=== PATIENT | female | born 1965 | race Caucasian/White ===

== ENCOUNTER 2017-04-22 15:51 | Emergency (ER) | payer MEDICAID ==
[~2017-04-22] VITALS: Ht 162.6 cm; Wt 78.0 kg
--- NOTE | 2017-04-22 17:08 | Urgent Treatment Center Report ---
History of Present Issue Date/Time Seen by Provider 04/22/17 4993 Visit Reason Pt arrived:Walked Presenting Problem:PT HAS HAD A COUGH FOR 2 DAYS. PT HAD ORAL SURGERY AND HAS STITCHES IN HER GUMS. PT HAS RASH ON BOTH ARMS. Location if Accident: Onset of symptoms date/time:/ or onset unknown for:MEDICAL HX UNKNOWN Have you (or family members/close friends) recently traveled outside the [place]? N If Yes, where/when: Have you had exposure to infectious disease within the past month? TB? Other? Specify: Patient state that has had a naggy cough for a couple of days State that she had dental surgery last week and had several teeth cut out and still has the stiches in place and wants to have that looked at too to see if we think it may be infected. States that her cough is dry and thinks it may be allergies but wanted to have her looked at to see. State that she also has had a little redness on the tops of both of her arms and he wasn't sure if that was a rash or not but her arms feel a little cold ALLERGIES Coded Allergies: codeine (Intermediate, I-RASH; NAUSEA/VOMITING 12/03/15) CHOCOLATE (FOOD) (From CHOCOLATE (FOOD/DRUG)) (Mild, NA-NAUSEA/VOMITING 12/03/15 ) chocolate flavor (From CHOCOLATE (FOOD/DRUG)) (Mild, NA-NAUSEA/VOMITING 12/03/15 ) Home Medications Reported Medications Levothyroxine Sodium (Levothyroxine) 0.05 MG PO DAILY Ferrous Sulfate (Iron) 325 MG PO DAILY Pravastatin Sodium (Pravachol) 20 MG PO QHS LISINOPRIL (Lisinopril) 5 MG PO DAILY History Medical History General CAD? No Angina: No AK: No Hypertension? No Hyperlipidemia? Yes CHF? No DVT? No PE? No COPD? No Asthma? No Anemia? No GERD? No Gastric ulcers? No GI Bleed? No Hernia? No Thyroid Problems? No Hypothyroidism? No CVA? No Seizures? No Diabetes? No Renal Insuffiency? No UTI? No Stones? No BPH? No GB Disease: No Nephritic Syndrome? No Asplenia? No Hepatitis? No Sickle Cell Disease? No Arthritis? No Migraines? No Cataracts? No Glaucoma? No MRSA? No HIV? No TB? No Anxiety? No Depression? No Cancer? No More? No Immunization HX DT/Tetanus 1-4 YRS Flu NEVER Pneumonia NEVER Surgical Hx Previous Surgery?Y TUBAL LIGATION Hysterect [place] Family History Family HX Diabetes Yes CAD No Hypertension Yes Hyperlipidemia No Cancer Yes TB No Social History Smoking Hx Smoker: Never Smoker Tobacco: No Alcohol Alcohol: No Review of Systems All Other Systems Reviewed and Negative Comment dry cough, sutures on right lower gumline Physical Exam Vital Signs Vital Signs Date Time Temp Pulse Resp B/P Pulse O2 O2 Flow FiO2 Ox Delivery Rate 04/22 1621 97.9 111 18 142/81 98 General Appearance normal appearance, WD/WN, no apparent distress Ear, Nose, Throat clear drainage noted in back of throat like that seen with seasonal allergies Respiratory Status Yes: trachea midline, chest symmetrical, non tender chest. No: respiratory distress. 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 No Departure Departure Time of Disposition 1704 Disposition DC Home or Self Care(routine) Clinical Impression Primary Impression: Seasonal allergies Qualifiers: Chronicity: unspecified Allergic rhinitis trigger: unspecified Qualified Code: J30.2 - Other seasonal allergic rhinitis Condition STABLE Referrals Lucy Skinner MD (Family) Patient Instructions Allergic Rhinitis, Nasal Filters May Improve Seasonal Allergy Symptoms Additional Instructions Take medication for allergies Continue using warm salt water gargles Follow up with family doctor if needed Return if needed Discharge Counseling Counseled pt/family regarding diagnosis, medications/RX, home care, follow up needs Prescriptions Current Visit Scripts Loratadine (Claritin 10MG) 10 MG PO DAILY #30 TAB at 1707
[2017-04-22 17:12] VITALS: BP 142/81
== END 2017-04-22 17:14 | disposition home or self-care (01) ==
LOC: UTC 15:51
DX: J30.2 Other seasonal allergic rhinitis (principal); E78.5 Hyperlipidemia, unspecified; Z79.899 Other long term (current) drug therapy

== ENCOUNTER 2017-04-29 19:21 | Emergency (ER) | payer MEDICAID ==
[~2017-04-29] VITALS: Ht 162.6 cm; Wt 78.0 kg
[~2017-04-29 19:21] MED LIST: BENTYL20 MG PO; CLARITIN 10MG T10 MG PO; IRON TABLETS325 M1 PO; KEFLEX 500MG.500 MG PO; LEVOTHYROXINE0.05 MG PO; LISINOPRIL 5MG T5 MG PO; LORTAB 5/500 501 TAB PO; MEDROL 4MG. DOSE4 MG PO; MOTRIN600 MG PO; OMEPRAZOLE40 MG PO; PHENERGAN 25MG.25 M1 PO; PRAVACHOL20 MG PO; ZANTAC 150150 MG OR
--- NOTE | 2017-04-29 20:08 | Emergency Room Report ---
History of Present Illness Time Seen by 1999 Presenting Problem in Triage Pt arrived:Walked Presenting Problem:PRODUCTIVE COUGH GREEN SPUTUM WITH FEVER X 1 WEEK. SEEN IN [facility] 04/22 AND TREATED FOR ALLERGIES. Onset of symptoms date/time:04/22/17 or onset unknown for: Treatment Prior to Arrival: TYLENOL 04/28 [employer] Provided by:LAYPERSON Sepsis Risk Assessment: Temp: 99.6 B/P: 143/92 MAP: 109 Pulse: 108 Resp: 16 Recent fever? Y Clinical Suspician of Infection? Y Mental Status: 1 - Regular (Normal Baseline) Sepsis Risk:Low Sepsis Risk Have you (or family members/close friends) recently traveled outside the [place]? N If Yes, where/when: Have you had exposure to infectious disease within the past month? N TB? Other? Specify: Source patient, RN notes reviewed, family, old records Exam Limitations language barrier Comment fever with assoc cough over the last few days with no hemoptysis Cardiac Chest Pain Chest pain indicative of cardiac No Timing/Duration this evening Severity moderate ALLERGIES Coded Allergies: codeine (Intermediate, I-RASH; NAUSEA/VOMITING 12/03/15) CHOCOLATE (FOOD) (From CHOCOLATE (FOOD/DRUG)) (Mild, NA-NAUSEA/VOMITING 12/03/15 ) chocolate flavor (From CHOCOLATE (FOOD/DRUG)) (Mild, NA-NAUSEA/VOMITING 12/03/15 ) Home Medications Active Scripts Loratadine (Claritin 10MG) 10 MG PO DAILY #30 TAB Prov: 04/22/17 Reported Medications Levothyroxine Sodium (Levothyroxine) 0.05 MG PO DAILY Ferrous Sulfate (Iron) 325 MG PO DAILY Pravastatin Sodium (Pravachol) 20 MG PO QHS LISINOPRIL (Lisinopril) 5 MG PO DAILY History Medical History General CAD? No Angina: No DE: No Hypertension? No Hyperlipidemia? Yes CHF? No DVT? No PE? No COPD? No Asthma? No Anemia? No GERD? No Gastric ulcers? No GI Bleed? No Hernia? No Thyroid Problems? No Hypothyroidism? No CVA? No Seizures? No Diabetes? No Renal Insuffiency? No End Stage Renal Disease? No UTI? No Stones? No BPH? No GB Disease: No Nephritic Syndrome? No Asplenia? No Hepatitis? No Sickle Cell Disease? No Arthritis? No Migraines? No Cataracts? No Glaucoma? No MRSA? No HIV? No TB? No Anxiety? No Depression? No Cancer? No More? 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 Respiratory see HPI, cough, denies shortness of breath, denies wheezing Cardiovascular denies chest pain, denies syncope Gastrointestinal denies abdominal pain, denies diarrhea, denies vomiting Genitourinary denies: dysuria, frequency, hesitancy, hematuria. Musculoskeletal denies back pain, denies joint pain, denies neck pain Skin denies rash Psychiatric/Neurological denies headache, denies seizure Physical Exam Vital Signs Vital Signs Date Time Temp Pulse Resp B/P Pulse O2 O2 Flow FiO2 Ox Delivery Rate 04/29 1926 99.6 108 16 143/92 97 - WBC >12,000 or <4,000 or 10% bands? 2 or more SIRS Criteria Met? B/P:143/92 MAP:109 Creatinine >2.0? UA output<0.5ml/kg/hr for 2 hrs? Platelet count >100,000? Lactate >2.0mmol/1? INR >1.2 or PTT > than 60 sec? Evidence of Organ Dysfunction? Provider documented clinical suspician of infection? Y Sepsis Criteria Count: 1 Sepsis Risk: Low Sepsis Risk General Appearance no apparent distress Eye Exam - bilateral eye PERRL, bilateral eye EOMI Ear, Nose, Throat normal ENT inspection Neck supple Respiratory Status No: respiratory distress. Lung Sounds bilateral: lungs clear. 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 No Results/Orders Laboratory Tests 04/29/172019: Chlamy pneum (TEM-PCR) Pending, Adenovirus (PCR) Pending, B. pertussis DNA (PCR) Pending, Coronavirus OC43 (PCR) Pending, Coronavirus HKU1 (PCR) Pending, Coronavirus 229E (PCR) Pending, Coronavirus NL63 (PCR) Pending, Human Metapneumovir PCR Pending, Influenza A (H1) PCR Pending, Influ A (H1N1/09) PCR Pending, Influenza A (H3) PCR Pending, Influenza Type A (PCR) Pending, Influenza Type B (PCR) Pending, M. pneumoniae (PCR) Pending, Parainfluenza 1 (PCR) Pending , Parainfluenza 2 (PCR) Pending, Parainfluenza 3 (PCR) Pending, Parainfluenza 4 (PCR) Pending, RSV (PCR) Pending, Entero/Rhino (PCR) Pending 04/29/171954: Sodium 140, Potassium 3.3 L, Chloride 106, Carbon Dioxide 28, BUN 11, Creatinine 0.8, Estimated Creat Clear 99, Estimated GFR (MDRD) 75, Glucose 135 H, Calcium 8.2 L, WBC 5.3, RBC 4.21, Hgb 12.1 L, Hct 37.5, MCV 89.1, RDW 15.1, Plt Count 154, Gran % 34.8 L, Gran # 1.8, Total Counted Pending, Lymphocytes % 54.4 H, Monocytes % 10.8 H, Neutrophils Pending, Lymphocytes (Manual) Pending, Lymphocytes # 2.9, Monocytes # 0.6, Platelet Estimate Pending, PUBS MCHC 32.3, MCH 28.7 Current Medication Orders Sig/Carlos Start time Last Medication Dose Route Stop Time Status Admin Sodium Chloride 1,000 ML .Q1H1M 04/29 2000 AC 04/29 IV 04/29 Sodium Chloride 10 ML PRN PRN 04/29 2000 IV 04/30 1948 Sodium Chloride 1,000 ML .STK-MED ONE 04/29 1950 DC IV Sodium Chloride 1,000 ML .Q1H1M 04/29 1945 DC IV 04/29 2242 Sodium Chloride 10 ML PRN PRN 04/29 1945 AC IV 04/30 1942 Sodium Chloride 10 ML PRN PRN 04/29 1945 AC IV 04/30 1944 Orders Procedure Date/time Status UPPER RESPIRATORY PANEL, PCR 04/29 2021 Active DIFFERENTIAL-WBC 04/29 1955 Active PULSE OXIMETRY REQUEST 04/29 1946 Active CHEST(2 VIEWS-NOT PORTABLE) 04/29 1946 Active IV SALINE LOCK 04/29 1946 Active OXYGEN PER NURSE 04/29 1946 Active CULTURE, BLOOD 04/29 1946 Active CBC WITH AUTO DIFF 04/29 1946 Active BASIC METABOLIC PROFILE 04/29 1946 Complete XRAY/CT/US XRAY/CT/US XRAY chest XR interpretation by reviewed by me Xray Results normal/NAD Departure Departure Time of Disposition 2023 Disposition DC Home or Self Care(routine) Clinical Impression Primary Impression: Bronchitis Condition STABLE Referrals Lucy Skinner MD (Family) Patient Instructions DI for Cough -- Adult Additional Instructions fluids and use meds and see pcp for follow up Discharge Counseling Counseled pt/family regarding diagnosis, test results, medications/RX, follow up needs Prescriptions Current Visit Scripts Azithromycin (Zithromycin (Z-SHERI) 250MG Tab) 250 MG PO DAILY #6 TAB TAKE TWO (2) TABLETS ON DAY 1, THEN ONE (1) TABLET DAY #2 THRU #5 Prednisone (Prednisone 20MG) 20 MG PO BID #10 TAB BENZONATATE (Benzonatate) 100 MG PO TID #15 CAP ED Critical Care Critical Care No at 2031
[2017-04-29 20:10] LABS: HEMOGLOBIN 12.1 g/dL (12.2-16.2)
[2017-04-29 20:11] LABS: LYMPH # 2.9 K/mm3 (0.7-4.5); LYMPH % 54.4 % (10-50.0)
[2017-04-29 20:24] LABS: CORONAVIRUS 229E NOT DETECTED (NOT DETECTE); CORONAVIRUS HKU 1 NOT DETECTED (NOT DETECTE); CORONAVIRUS NL63 NOT DETECTED (NOT DETECTE); CORONAVIRUS OC43 NOT DETECTED (NOT DETECTE); RHINOVIRUS/ENTEROVIRUS NOT DETECTED (NOT DETECTE)
[2017-04-29] MEDS ORDERED: TESSALON PERLE100 MG PO (20:31)
[2017-04-29] MEDS ORDERED: ZITHROMAX Z PA250 MG PO (20:31)
[2017-04-29] MEDS ORDERED: PREDNISONE 20MG20 MG PO (20:31)
[2017-04-29 20:39] VITALS: BP 143/92
--- NOTE | 2017-04-29 21:00 | RADIOLOGY REPORT PS360 ---
CHEST(2 VIEWS-NOT PORTABLE) HISTORY: productive cough ORDERING PHYSICIAN: Rishabh Rosenthal MD PATIENT AGE: 52 years COMPARISON: 09/26/2013 FINDINGS: The cardiomediastinal silhouette and pulmonary vascularity are within normal limits. The lungs are clear without infiltrates, suspicious nodules, or pleural effusions. No acute bony abnormalities. IMPRESSION: Negative chest, no acute finding
[2017-04-29 23:15] LABS: NEUTROPHILS 41 % (42-76)
== END 2017-04-29 20:50 | disposition home or self-care (01) ==
LOC: ER 19:21
PROVIDERS: Emergency Medicine
DX: J20.9 Acute bronchitis, unspecified (principal); I10 Essential (primary) hypertension; E78.5 Hyperlipidemia, unspecified; Z88.6 Allergy status to analgesic agent